=== PATIENT | female | born 1995 | race African-American/Black ===

== ENCOUNTER 2017-08-13 08:28 | Inpatient (IN) | payer OTHER ==
[~2017-08-13] VITALS: Ht 167.6 cm; Wt 108.9 kg
[~2017-08-13 08:28] MED LIST: NORCO 5-325 TA1 EACH PO; PHENERGAN 25 MG25 M1 PO
[2017-08-13 08:39] VITALS: BP 159/103
[2017-08-13] MEDS ORDERED: NORCO 5-325 TA1 EACH PO (08:42)
[2017-08-13] MEDS ORDERED: KEFLEX500 M1 PO (08:42)
[2017-08-13 08:44] LABS: URINE BILIRUBIN NEGATIVE (Negative); URINE BLOOD 1+ (Negative); URINE CLARITY CLEAR; URINE COLOR YELLOW; URINE GLUCOSE-RANDOM NEGATIVE (Negative); URINE KETONES NEGATIVE (Negative); URINE LEUKOCYTES-REFLEX NEGATIVE (Negative); URINE NITRITE-REFLEX NEGATIVE (Negative); URINE PROTEIN TRACE (Negative); URINE SPECIFIC GRAVITY >= 1.030 (1.005-1.030)
[2017-08-13 08:56] LABS: RDW-CV 12.6 % (10.5-14.5)
[2017-08-13 08:57] LABS: BACTERIA-REFLEX 1-9 Few /HPF (None Seen); CASTS None Seen /LPF (None Seen); CRYSTALS None Seen /LPF (None Seen); MUCUS 0-3 Light strn/LPF (None Seen); SQUAMOUS 4-10 Moderate /LPF (0-3); URINE RBC 3-10 Few /HPF (0-2); URINE WBC-REFLEX 0-5 Rare /HPF (0-5)
[2017-08-13 08:58] LABS: ABSOLUTE BASOPHILS 0.1 thou/uL (0.0-0.2); ABSOLUTE LYMPHOCYTES 1.3 thou/uL (0.8-5.3); ABSOLUTE MONOCYTES 0.4 thou/uL (0.0-1.2); ABSOLUTE NEUTROPHILS 3.2 thou/uL (1.6-8.1); BASOPHILS 1.2 %; EOSINOPHILS 0.3 %; HEMATOCRIT 43.6 % (37.0-47.0); HEMOGLOBIN 15.1 gm/dL (12.0-15.0); LYMPHOCYTES 26.6 %; MCH 29.7 pg (26.0-34.0); MCHC 34.6 g/dL (28.0-37.0); MCV 85.8 fL (80.0-100.0); MONOCYTES 8.5 %; MPV 8.6 fl. (7.2-11.1); NUCLEATED RBCS 0 /100WBC; PLATELET COUNT* 248 thou/uL (150-400); POLYS 63.4 %; RBC 5.08 mil/uL (4.20-5.00)
[2017-08-13 09:09] LABS: CALCIUM 9.3 mg/dL (8.5-10.1); CREATININE 0.8 mg/dL (0.6-1.3); POTASSIUM 3.8 mmol/L (3.5-5.1)
[2017-08-13 09:14] LABS: ALBUMIN 4.3 g/dL (3.4-5.0); TOTAL BILIRUBIN 0.3 mg/dL (<0.1-1.0); TOTAL PROTEIN 8.9 g/dL (6.4-8.2)
[2017-08-13 15:29] VITALS: BP 131/82
[2017-08-13 15:45] VITALS: BP 152/90
--- NOTE | 2017-08-13 16:55 | NUR ---
PATIENT ADMITTED TO ROOM 315 FROM ER THIS EVENING. PARTENTS AT BEDSIDE. ALERT AND ORIENTED X 4. GI CONSULTED, WILL SEE TOMORROW. NPO, ORAL CARE ITEMS GIVEN. NO COMPLAINTS OF PAIN AT THIS TIME. IVF INFUSING. SCD'S. UP AD TIMMY. ORIENTED TO CALL LIGHT, CALL LIGHT WITHIN REACH, WILL CONTINUE TO MONITOR.
[2017-08-14] VITALS: BP 133/83
[2017-08-14 04:34] LABS: HEMATOCRIT 41.1 % (37.0-47.0); HEMOGLOBIN 13.8 gm/dL (12.0-15.0); MCH 29.3 pg (26.0-34.0); MCHC 33.5 g/dL (28.0-37.0); MCV 87.3 fL (80.0-100.0); MPV 8.7 fl. (7.2-11.1); RBC 4.71 mil/uL (4.20-5.00); RDW-CV 12.9 % (10.5-14.5); WBC 4.5 thou/uL (4.0-11.0)
[2017-08-14 04:46] LABS: ALBUMIN 3.4 g/dL (3.4-5.0); CALCIUM 8.6 mg/dL (8.5-10.1); CREATININE 0.9 mg/dL (0.6-1.3); POTASSIUM 3.9 mmol/L (3.5-5.1); TOTAL BILIRUBIN 0.7 mg/dL (<0.1-1.0); TOTAL PROTEIN 6.8 g/dL (6.4-8.2)
--- NOTE | 2017-08-14 05:52 | NUR ---
ASSUMED CARE OF PT AT 1900 PT ALERT AND ORIENTED X4, VS AND ASSESSMENT STABLE. PT HAD TYLENOL FOR A HEADACHE WITH POSITIVE EFFECT THEN SLEPT THROUGH THE NIGHT.WILL MONITOR.
[2017-08-14 08:25] VITALS: BP 146/80
[2017-08-14 15:56] VITALS: BP 157/104
--- NOTE | 2017-08-14 16:01 | NUR ---
SW met with pt to complete initial assessment, introduce self, and SW role. Pt alert, oriented, mother and father bedside. Pt is on winter break from college, staying at home with parents. No needs expressed at this time. SW to continue to follow to assist with safe dc planning.
--- NOTE | 2017-08-14 18:06 | NUR ---
ASSUMED CARE OF PATIENT AFTER MORNING REPORT. ALERT AND ORIENTED X4. ASSESSMENT COMPLETED AND IS CHARTED. VSS ON ROOM AIR. PATIENT HAS HAD NO COMPLAINTS OF PAIN OR NAUSEA THIS SHIFT. PATIENT AND FAMILY WERE UPSET THIS MORNING/EARLY AFTERNOON BECAUSE THEY HAD NOT SEEN A DOCTOR YET. DR ROACH WAS PAGED AND SHE SPOKE WITH THE PATIENT AND FAMILY. PATIENT WILL BE NPO AFTER MIDNIGHT FOR A PIPIDA TOMORROW. HOURLY ROUNDS HAVE BEEN MAINTAINED. CALL LIGHT IS WITHIN REACH. NURSING WILL CONTINUE TO MONITOR.
[2017-08-14 20:00] VITALS: BP 147/92
[2017-08-15 00:54] VITALS: BP 147/92
[2017-08-15 04:28] LABS: ABSOLUTE EOSINOPHILS 0.1 thou/uL (0.0-0.7); ABSOLUTE LYMPHOCYTES 1.8 thou/uL (0.8-5.3); ABSOLUTE MONOCYTES 0.5 thou/uL (0.0-1.2); ABSOLUTE NEUTROPHILS 1.7 thou/uL (1.6-8.1); BASOPHILS 0.9 %; EOSINOPHILS 1.3 %; HEMATOCRIT 39.4 % (37.0-47.0); HEMOGLOBIN 13.4 gm/dL (12.0-15.0); LYMPHOCYTES 44.7 %; MCH 29.7 pg (26.0-34.0); MCHC 34.1 g/dL (28.0-37.0); MCV 87.2 fL (80.0-100.0); MPV 8.4 fl. (7.2-11.1); NUCLEATED RBCS 0 /100WBC; PLATELET COUNT* 210 thou/uL (150-400); POLYS 42.1 %; RBC 4.52 mil/uL (4.20-5.00); RDW-CV 12.5 % (10.5-14.5); WBC 4.1 thou/uL (4.0-11.0)
[2017-08-15 04:35] LABS: INR 1.1; PROTIME 10.5 Seconds (9.20-11.50)
--- NOTE | 2017-08-15 04:50 | NUR ---
PATIENT ALERT AND ORIENTED. VITALS STABLE. UP INDEPENDENTLY IN ROOM. MOTHER AT BEDSIDE. NPO SINCE MIDNIGHT. FLUIDS INFUSING PER ORDER. DENIES PAIN AND NAUSEA. GATO NAYAK SCHEDULED FOR 0800 THIS MORNING. HOURLY ROUNDS. NURSING WILL CONTINUE TO MONITOR.
[2017-08-15 04:53] LABS: ALBUMIN 3.3 g/dL (3.4-5.0); CALCIUM 8.3 mg/dL (8.5-10.1); CREATININE 0.8 mg/dL (0.6-1.3); POTASSIUM 3.9 mmol/L (3.5-5.1); TOTAL BILIRUBIN 0.5 mg/dL (<0.1-1.0); TOTAL PROTEIN 6.8 g/dL (6.4-8.2)
[2017-08-15 07:35] VITALS: BP 158/95
--- NOTE | 2017-08-15 09:24 | NUR ---
ASSUMED CARE OF PATIENT AFTER REPORT THIS MORNING. PATIENT TRANSFERED TO PRE-OP FOR GATO ACEVESE AT SHIFT CHANGE. PATIENT IS OFF UNIT AT THIS TIME. NURSING WILL CONTINUE TO MONITOR WHEN PATIENT RETURNS TO ROOM.
[2017-08-15 11:50] VITALS: BP 158/98
--- NOTE | 2017-08-15 11:53 | NUR ---
PATIENT RETURNED TO ROOM AT 11:15. PATIENT AWAKE, ALERT, AND ORIENTED APPROPRIATELY. CRYING FROM PAIN. HYPERTENSIVE WITH TACHYCARDIA. PHYSICAL ASSESSMENT COMPLETED AND CHARTED. GIVEN PRN AND SCHEDULED MEDICATIONS, SEE EMAR FOR DOCUMENTATION. PATIENT AND FAMILY EDUCATED TO CALL FOR HELP WHEN NEEDING TO GET OUT OF BED, STATED UNDERSTANDING. CALL LIGHT WITHIN REACH. DENIES OTHER NEEDS AT THIS TIME. NURSING WILL CONTINUE TO MONITOR.
[2017-08-15] MEDS ORDERED: NORCO 7.5-3251 EACH PO (15:37)
--- NOTE | 2017-08-15 17:27 | NUR ---
PATIENT REMAINS ALERT AND ORIENTED. HAVING MINIMAL PAIN. HAS NOT REQUIRED ORAL PAIN MEDICATIONS FOR PAIN CONTROL. GIVEN ONE DOSE OF IV MORPHINE WHEN RETURNED TO FLOOR FROM SURGERY FOR SEVERE PAIN, SEE EMAR FOR DOCUMENTATION. BOTH SURGERY AND MEDICAL PHYSICIANS STATED PATIENT COULD DISCHARGE IF ORAL PAIN MEDICATIONS CONTROLLED HER POST-SURGICAL PAIN. DRESSINGS TO ABDOMEN HAVE REMAINED CLEAN AND DRY. PATIENT DENIES NEEDS. FAMILY AT BEDSIDE. CALL LIGHT WITHIN REACH. NURSING WILL CONTINUE TO MONITOR.
[2017-08-15 17:45] VITALS: BP 144/92
--- NOTE | 2017-08-15 17:59 | NUR ---
JUST CHECKED ON PATIENT. DID NOT REQUEST PAIN MEDICATION. WANTS TO GO HOME. SALINE LOCKED. PHYSICIAN PAGED. WILL SEE IF PATIENT CAN DISCHARGE.
[2017-08-15 18:02] VITALS: BP 144/92
[2017-08-15] MEDS ORDERED: COLACE100 MG PO (18:06)
--- NOTE | 2017-08-15 18:34 | NUR ---
RECEIVED ORDERS FROM DR. PARSONS TO DISCHARGE PATIENT. PATIENT HAS VOIDED AND IS TOLERATING HER DIET. PATIENT HAS BEEN NOTIFIED AND IS GETTING DRESSED AT THIS TIME. NURSING WILL CONTINUE TO MONITOR.
--- NOTE | 2017-08-15 18:54 | NUR ---
IV DISCONTINUED. DISCHARGE PAPERWORK COMPLETED AND SIGNED BY ALL APPROPRIATE PARTIES, ON PATIENT'S CHART. GIVEN SCRIPT FOR PAIN AND DISCUSSED WITH PAIN AND FAMILY. PATIENT DISCHARGED AT 1850. ESCORTED TO FRONT DOOR BY THIS NURSE VIA WHEELCHAIR.
--- NOTE | 2017-08-18 12:10 | S ---
[address] [address] SURGICAL PATH RPT PROCEDURE Name: CORNELIO DOE Room: [address] IN [facility].#: [id number] Admission: 08/13/17 Date of : [birth year] Discharge: 08/15/17 Report #: [id number] Path Case #: [id number] PATHOLOGY REPORT COLLECTION DATE: 08/15/2017 RECEIVED DATE: 08/15/2017 SUBMITTING PHYS: Dr. David Calderon OTHER PHYS: Dr. Alia Woodson SPECIMEN(S) RECEIVED: A.Gallbladder and contents * * * * * * * * * * * * FINAL DIAGNOSIS: Gallbladder and contents: - Chronic and acute erosive cholecystitis and cholelithiasis. (JUANCARLOS:pit; 08/18/2017) PATHOLOGIST: Sean Jane M.D. REPORT ELECTRONICALLY SIGNED BY: Sean Jane M.D. DATE/TIME: 08/18/2017 12:09 * * * * * * * * * * * * GROSS PATHOLOGY: Received in formalin labeled "Cornelio Doe and gallbladder and contents," is a distended 12.2 x 3.0 x 2.5 cm, gallbladder with glistening, blue purple serosal surfaces. Opening the gallbladder reveals a yellow-green and velvety mucosa and an average wall thickness of 0.1 cm. Calculus is present and no masses are noted grossly. Hemming [employer] Tacking Machine Operator sections from the body and fundus are submitted along with the proximal margin in cassette A1. (SWS; 08/15/2017) CLINICAL HISTORY: Chronic cholecystitis, common bile duct obstruction INITIAL CPT CODE(S): A; 67580 Professional services performed [place] [place] [address] Technical services performed by [facility] at [address] [place] [address], [address] [address]. [place] [address] SURGICAL PATH RPT PROCEDURE Name: CORNELIO DOE Room: [address]#: [id number] Admission: 08/13/17 Date of : [birth year] Discharge: 08/15/17 Report #: [id number] Path Case #: [id number] [facility] [address] [place] [address] PHONE: [phone] DIRECTOR: José Manuel Garcia M.D. * * * END OF REPORT * * *
--- NOTE | 2017-08-18 20:23 | OP ---
[address] [address] OPERATIVE REPORT Name: CORNELIO DOE Cade Room: [address] IN M.R.#: [id number] Admission: 08/13/17 Attend Phys: Raul Baez Discharge: 08/15/17 Date of : [birth year] Report #: [id number] THIS REPORT FOR: //name// CC: Hebert Cosme DATE OF SERVICE: 08/15/2017 REFERRING PHYSICIAN: Catrachita Woodson MD PREOPERATIVE DIAGNOSIS: Cholecystitis. POSTOPERATIVE DIAGNOSES: Acute cholecystitis with cholelithiasis and morbid obesity. PROCEDURE: Laparoscopic cholecystectomy with intraoperative cholangiogram. SURGEON: David Calderon DO REPOSSESSOR: Katie Pappas DO, PGY3, resident. ANESTHESIA: General endotracheal. ESTIMATED BLOOD LOSS: Less than 30 mL. COMPLICATIONS: None. DESCRIPTION OF PROCEDURE: After obtaining proper consents and discussing risks and complications with the patient, she was taken to the operating room, laid on the supine position, administered general endotracheal anesthetic. She was then prepped and draped in the usual fashion. A supraumbilical skin incision was made after a time-out was performed. This was carried down through the skin into the subcutaneous tissue using electrocautery for hemostasis. Once the fascia was encountered, it was incised along the midline, grasped and elevated with [facility] clamps and divided further. The peritoneum was then bluntly opened using a hemostat. A finger was placed inside the peritoneal cavity to assure that there were no angela-incisional adhesions. Next, 2-0 Vicryl sutures were placed in a [id number] fashion to secure the Vanessa trocar, which was then inserted and insufflation was begun. Once insufflation was complete, full visual inspection of the anterior abdominal organs was performed. This revealed a dilated, thick walled appearing gallbladder. There was a large amount of omental fat identified as well. The liver also appeared somewhat fatty and the patient is morbidly obese. We then placed the patient in reverse Trendelenburg position and rotated her to the left. An 11-mm [id number] OPERATIVE REPORT Name: BROOKCORNELIO L Room: [address] IN [facility]#: [id number] Admission: 08/13/17 Attend Phys: Raul Baez Discharge: 08/15/17 Date of : 97 Report #: [id number] subxiphoid position. Two 5-mm trocars were placed in the right flank. We were then able to grasp and elevate the gallbladder. There were omental adhesions surrounding the lower half of the gallbladder and a moderate amount of inflammatory fluid in this omentum as well. This was all bluntly dissected down to Gene's pouch, which appeared to have an approximately 1 to 1.5 cm gallstone impacted in it right at the neck of the gallbladder and this was also appeared to be lying on top of the common bile duct. I was able to elevate Gene's pouch and I was able to milk the stone back up into the body of the gallbladder to allow further dissection of the hepatoduodenal ligament. Once this was done, I was able to easily identify the cystic duct and cystic artery and obtained a critical view. These areas were both dissected free. We did clip the cystic artery and divided prior to clipping the cystic duct. At this point, we placed a clip at the gallbladder cystic duct junction and a cholangiogram was performed. This revealed a fairly long cystic duct. The common bile duct was normal in caliber as well as the common hepatic duct and intrahepatic duct. There were no filling defects and there was contrast, which passed easily into the duodenum. At this point, we removed the cholangiogram catheter, placed 3 clips proximally on the cystic duct and the cystic duct was divided. The gallbladder was then removed from the liver bed using electrocautery. Once this was complete, the cystic duct and cystic artery stumps were checked for any leak or bleeding, there was none identified. We did copiously irrigate the area. We also checked the liver bed for any bleeding or leak and none was identified. The gallbladder was placed into an Endopouch. The insufflation was stopped, all air was released. Trocars were removed. The gallbladder was removed through the umbilical incision. The umbilical fascia was then closed using the 2 previously placed 0 Vicryl sutures plus 2 additional 0 Vicryl sutures. The skin incisions were all injected with 0.5% Marcaine without epinephrine and closed using 4-0 Monocryl subcuticular stitches. Mastisol, Steri-Strips, sterile OpSite and pressure dressings were placed. The patient tolerated the procedure well, was transported to recovery room in stable condition. <ELECTRONICALLY SIGNED> By: David Calderon DO 08/18/172022 1003 [id number] Calderon DO /nt
--- NOTE | 2017-08-21 20:20 | CON ---
[address] [address] CONSULTATION Name: BROOKCORNELIO L Room: [address] IN .R.#: [id number] Admission: 08/13/17 Attend Phys: Raul Baez Discharge: 08/15/17 Date of : 89 Report #: [id number] THIS REPORT FOR: //name// CC: Catrachita Cosme DICTATED BY: Sara Dexter [facility] DATE OF SERVICE: 08/14/2017 Please note at the time of this dictation, the patient was seen and physically examined by myself. REFERRING PHYSICIAN: Dr. Cosme as well as Dr. David Calderon and Dr. Catrachita Pat____. REASON FOR CONSULTATION: Abdominal pain and possible choledocholithiasis. HISTORY OF PRESENT ILLNESS: This is a 22-year-old -[place] female who presented with acute onset of abdominal pain and epigastric pain that felt like a band wrapping around her abdomen and into her back. She states this was the worst pain that she had had in some time and that she also had associated vomiting with it, but only one episode. She denied any hematemesis with this at that time. She reports that she does have a fatty diet and here over the last 2 months she has had 3 episodes of this abdominal pain, but this has been the only one that she has presented her to the Emergency Room basically due to the vomiting. She states when she has the abdominal pain, she has doubled over in a position. She has difficulty passing any gas and is unable to eat and the variation in timeframe as to when it will go away can vary. She says most of the time that her abdominal pain does not usually occur till after eating several hours and sometimes will wake her in the middle of the night, particularly after dinner. She has had several bouts of these episodes over the last couple of years, but this has been more frequent here over the last 2 months prompting her to be seen. ALLERGIES: No known drug allergies. MEDICATIONS FROM HOME: None. PAST MEDICAL HISTORY: None. PAST SURGICAL HISTORY: None. FAMILY HISTORY: [place] [address] CONSULTATION Name: CORNELIO DOE Room: [address]#: [id number] Admission: 08/13/17 Attend Phys: Raul Baez Discharge: 08/15/17 Date of : 97 Report #: [id number] SOCIAL HISTORY: The patient is a sophomore in college. Denies any alcohol, tobacco or illegal drug use. REVIEW OF SYSTEMS: Twelve-point review of systems is essentially negative except what is mentioned in the HPI. PHYSICAL EXAMINATION: VITAL SIGNS: Temperature 37.1, pulse 91, respirations 14, blood pressure 146/80. HEART: Regular rate and rhythm. LUNGS: Clear. ABDOMEN: Soft, positive bowel sounds in all 4 quadrants with no masses or tenderness noted. LABORATORY DATA: Hemoglobin 13.8, hematocrit 41.1, white count is 4.5, platelets of 215. Sodium 143, potassium 3.9, chloride 107, CO2 29, BUN is 12, creatinine is 0.9, GFR is 97, glucose is 79, total bilirubin is 0.7, alkaline phosphatase 72, ALT 18, AST is 21. Ultrasound of the abdomen showed gallbladder thickening with a CBD of 6.8-7 mm, moderate sludge was noted in the gallbladder with tiny stone possibly noted. MRCP done this a.m. showed some dilatation of the intrahepatic with slight prominence of the common hepatic and CBD down to the ampulla with slight prominence of the pancreatic duct to the ampulla as well, but negative for anything going on in the pancreatic head. IMPRESSION: 1. Acute acalculous cholecystitis. 2. Remote history of ovarian torsion, requiring surgery. PLAN: 1. Heart healthy diet today. 2. We will proceed with recommendations to have a laparoscopic cholecystostomy with an intraoperative cholangiogram once during surgery. If her IOC is abnormal, then we can proceed with an ERCP postop, as well as ____ this is not done prior to her surgery. If she should have pain after her cholecystectomy, she may have sphincter of Oddi dysfunction. 3. We will schedule for a CCK PIPIDA for tomorrow. 4. We will await discussion with Dr. Calderon regarding the case with Dr. Lizarraga. Thank you for allowing us to participate in this patient's case. Please do not hesitate to call with any questions in regard to this consult. I have seen and examined the patient and agree with plans that has been outlined by our nurse practitioner, Sara Dexter. I suspect the patient has acalculous or calculus cholecystitis with possible obstruction and is without evidence for obvious choledocholithiasis. Will allow the patient to eat a heart [facility] [address] [place] [address] CONSULTATION Name: CORNELIO DOE Room: [address] IN M.R.#: [id number] Admission: 08/13/17 Attend Phys: Alia ThomasJuan Raul Cosme Discharge: 08/15/17 Date of : 97 Report #: [id number] healthy diet tonight and proceed with laparoscopic cholecystectomy with an intraoperative cholangiogram due to the findings of a mildly prominent common bile duct. If her intraoperative cholangiogram is abnormal, we can proceed with an ERCP postoperatively. She does not need a preoperative ERCP at this time. It is possible she could have sphincter of Oddi dysfunction, type 1, but at the present time, she needs to have a cholecystectomy secondary to a markedly dilated gallbladder with gallbladder wall thickening, etc. I have discussed the patient's case with Dr. Calderon, will see the patient later on this evening and likely take the patient to surgery tomorrow. I have discussed those plans with the patient and mother and father as well and all are in agreement with the same. <ELECTRONICALLY SIGNED> By: Hebert Lizarraga DO 08/21/17 2020 1719 [id number] Lizarraga DO /nt
== END 2017-08-15 18:50 | disposition home or self-care (01) | DRG 419 ==
LOC: M.ERS 08:28 → M.TBA-ER 12:25 → M.3W 15:39
PROVIDERS: Emergency Medicine Emergency Medical Services; Internal Medicine Gastroenterology; ADMIT Internal Medicine
PROC: 0FT44ZZ Resection of Gallbladder, Percutaneous Endoscopic Approach (ICD-10-PCS; principal; 2017-08-15)
PROC: BF131ZZ Fluoroscopy of Gallbladder and Bile Ducts using Low Osmolar Contrast (ICD-10-PCS; principal; 2017-08-15)
DX: K80.67 Calculus of gallbladder and bile duct with acute and chronic cholecystitis with obstruction (principal); E66.01 Morbid (severe) obesity due to excess calories; Z68.38 Body mass index [BMI] 38.0-38.9, adult; E86.0 Dehydration; R82.4 Acetonuria; I10 Essential (primary) hypertension; Z79.899 Other long term (current) drug therapy

== ENCOUNTER → 2021-10-03 | Outpatient (CLI) | payer OTHER ==
[~2021-10-03] MED LIST changes: +COLACE100 MG PO; +KEFLEX500 M1 PO; +NORCO 7.5-3251 EACH PO
== END ==
LOC: M.ULTRA 12:29
PROVIDERS: ATTEND Specialist
DX: M79.662 Pain in left lower leg (principal); M79.651 Pain in right thigh; M79.652 Pain in left thigh